=== PATIENT | female | born 1990 | race African-American/Black ===

== ENCOUNTER 2018-05-02 03:38 | Emergency (ER) | payer MEDICAID ==
[~2018-05-02] VITALS: Ht 154.9 cm; Wt 45.4 kg
--- NOTE | 2018-05-02 04:18 | Emergency Room Report ---
History of Present Illness General Chief Complaint: Lower Extremity Injury Source: Patient Present Illness HPI Patient present with complaints of pain to the left foot Essentially the large toe joint going into the base of the foot Pain started yesterday morning Patient denies any fever or trauma Patient had delivery in January reports that she has not really been on high heels Since the delivery Denies any ankle pain denies any Swelling Allergies: Coded Allergies: No Known Allergies (Unverified , 05/02/18) Patient History Past Medical History: see triage record Pertinent Family History: none Reviewed Nursing Documentation: PMH: Agreed; PSxH: Agreed Nursing Documentation-PMH Past Medical History: No Stated History Review of Systems All Other Systems: negative except mentioned in HPI Physical Exam Vital Signs Date Time Temp Pulse Resp B/P (MAP) Pulse Ox O2 Delivery O2 Flow Rate FiO2 05/02/18 03:48 98.2 86 18 111/79 99 Room Air Sp02 EP Interpretation: reviewed, normal General Appearance: well appearing, no apparent distress Head: normocephalic, atraumatic Eyes: bilateral eye PERRL, bilateral eye EOMI ENT: hearing grossly normal, normal pharynx, TMs + canals normal, uvula midline Neck: full range of motion, supple, no meningismus, no bony tend Respiratory: lungs clear, normal breath sounds, no rhonchi, no respiratory distress, no retraction, no accessory muscle use Cardiovascular #1: normal peripheral pulses, regular rate, rhythm, no edema, no gallop, no JVD, no murmur Gastrointestinal: normal bowel sounds, non tender, soft, no mass, no organomegaly, non-distended, no guarding, no hernia, no pulsatile mass, no rebound Genitourinary: no CVA tenderness Musculoskeletal: other - There is some swelling and inflammation noted to the base of the left large toe, pain continues towards the plantar region midfoot no obvious erythema neurovascularly intact pain is worse with stretching Neurologic: oriented x3, responsive, pain management nurse practitioner III-XII nml as tested, motor strength/ tone normal, sensory intact Psychiatric: mood/affect normal Skin: palpation normal Lymphatic: normal inspection, no adenopathy Medical Decision Making Diagnostic Impression: Primary Impression: Arthralgia Additional Impressions: Gout Foot pain ER Course Given the patient's exam and presentation There are findings consistent with multiple differentials including but not limited to gout, arthritis, septic joint, less likely plantar fasciitis Patient is afebrile The joint involves the left large toe She was provided initial low-dose steroid and anti-inflammatory Postop she was provided My suspicion for gonococcal septic joint or other infectious pathology is low and patient was provided podiatry follow-up as well Other X-Ray Diagnostic Results Other X-Ray Diagnostic Results : X-Ray ordered: Left foot # of Views/Limited Vs Complete: 2 View Indication: Pain EP Interpretation: Yes Interpretation: no dislocation, no soft tissue swelling, no fractures Impression: No acute disease Electronically Signed by: Chelly Can DO Last Vital Signs Date Time Temp Pulse Resp B/P (MAP) Pulse Ox O2 Delivery O2 Flow Rate FiO2 05/02/18 03:48 98.2 86 18 111/79 99 Room Air Status: improved Disposition: HOME, SELF-CARE Condition: Improved Scripts Ibuprofen* (MOTRIN*) 600 Mg Tablet 600 MG ORAL Q8H PRN for For Pain, #20 TAB 0 Refills Prov: Chelly Can DO 05/02/18 Methylprednisolone (Methylprednisolone*) 4MG Dspk 4 MG ORAL DIRECTED for 6 Days, #21 EA 0 Refills Day 1: Two tablets before breakfast, one after lunch, one after dinner, and two at bedtime. If started late in the day, take all six tablets at once or divide into two or three doses, unless otherwise directed by prescriber. Day 2: One tablet before breakfast, one after lunch, one after dinner, and two at bedtime Day 3: One tablet before breakfast, one after lunch, one after dinner, and one at bedtime Day 4: One tablet before breakfast, one after lunch, and one at bedtime Day 5: One tablet before breakfast and one at bedtime Day 6: One tablet before breakfast Prov: Chelly Can DO 05/02/18 Referrals: NON PHYSICIAN (PCP) Additional Instructions: Patient is provided with the discharge instructions notified to follow up with primary doctor in the next 2-3 days otherwise return to the er with any worsening symptoms. Please note that this report is being documented using [employer] technology. This can lead to erroneous entry secondary to incorrect interpretation by the dictating instrument. Chelly Can DO May 02, 2018 04:18
[2018-05-02] MEDS ORDERED: MEDROL DOSEPAK4 MG ORAL (04:33)
[2018-05-02] MEDS ORDERED: IBUPROFEN600 MG ORAL (04:33)
[2018-05-02] MEDS ORDERED: Tylenol #3 tab (300mg/30mg) ORAL ONE (04:45)
[2018-05-02 04:50] VITALS: BP 1/1
--- NOTE | 2018-05-02 12:17 | Diagnostic Imaging Report ---
Indication: Left foot pain Technique: 2 views left foot Comparison: none Findings: No acute fractures. No dislocations. Joint spaces are preserved Impression: Negative
== END 2018-05-02 04:51 | disposition home or self-care (01) ==
LOC: EMR 03:52
DX: M10.9 Gout, unspecified (principal)
CPT/HCPCS: 99283